=== PATIENT | female | born 1995 | race Caucasian/White ===

== ENCOUNTER 2018-06-25 11:42 | Emergency (ER) | payer OTHER ==
[~2018-06-25] VITALS: Ht 162.6 cm; Wt 113.4 kg
[2018-06-25 12:04] VITALS: BP 137/93
--- NOTE | 2018-06-25 12:08 | NUR ---
PATIENT AMB. TO BED #11
[2018-06-25] MEDS ORDERED: KETOROLAC 60 MG/2 ML VIAL IM ONE (12:15)
--- NOTE | 2018-06-25 12:27 | NUR ---
WHEN LIFTING HEAVY OBJECT. ABD. US DONE IN [place] X 6 MOS. AGO SHOWING CYST ON THE OVARIES PER PATIENT. LAST MENSES LAST YEAR. DENIES N/V/D; SKIN IS PINK/WARM/DRY; AAOX4 WITH EVEN AND STEADY GAIT; LUNGS CLEAR BL; HR EVEN AND REGULAR; PT DENIES ANY FEVER, CP, SOB, OR COUGH AT THIS TIME; PATIENT STATES PAIN OF 8/10 AT THIS TIME; VSS; PATIENT POSITIONED FOR COMFORT; HOB ELEVATED; BEDRAILS UP X2; BED DOWN. ER MD MADE AWARE OF PT STATUS.
--- NOTE | 2018-06-25 12:40 | NUR ---
DR VIDAL AT BEDSIDE
[2018-06-25 12:53] VITALS: BP 137/93
== END 2018-06-25 12:54 | disposition home or self-care (01) ==
LOC: MED 11:42
DX: R10.30 Lower abdominal pain, unspecified (principal)
CPT/HCPCS: 81002; 81025; 96372; 99283; J1885